=== PATIENT | female | born 1990 | race Caucasian/White ===

== ENCOUNTER 2019-12-15 14:40 | Inpatient (IN) | payer OTHER ==
[~2019-12-15] VITALS: Ht 167.6 cm; Wt 81.6 kg
[2019-12-15 14:52] VITALS: BP 137/88
[2019-12-15 15:09] LABS: URINE BLOOD TRACE (Negative); URINE COLOR YELLOW; URINE GLUCOSE-RANDOM* NEGATIVE (Negative); URINE KETONES TRACE (Negative); URINE NITRITE-REFLEX NEGATIVE (Negative); URINE PROTEIN (DIPSTICK) 1+ (Negative); URINE SPECIFIC GRAVITY >= 1.030 (1.005-1.035)
[2019-12-15 15:11] LABS: URINE BILIRUBIN NEGATIVE (Negative); URINE LEUKOCYTES-REFLEX 1+ (Negative)
[2019-12-15 15:12] LABS: ICTOTEST (BILI CONFIRMATORY) Negative (Negative); URINE CLARITY SL HAZY
[2019-12-15 15:15] LABS: SQUAMOUS 4-10 Moderate /LPF (0-3)
[2019-12-15 15:16] LABS: BACTERIA-REFLEX >30 Many /HPF (None Seen); CASTS None Seen /LPF (None Seen); CRYSTALS None Seen /LPF (None Seen); MUCUS >6 Heavy strn/LPF (None Seen); URINE RBC 0-2 Rare /HPF (0-2); URINE WBC-REFLEX 6-15 Few /HPF (0-5)
[2019-12-15 16:07] LABS: ABSOLUTE NEUTROPHILS 16.7 thou/uL (1.4-8.2); BASOPHILS 0.1 % (0.0-2.0); EOSINOPHILS 0.1 % (0.0-3.0); HEMATOCRIT 53.7 % (37.0-47.0); HEMOGLOBIN 18.6 gm/dL (12.0-15.0); LYMPHOCYTES 4.2 % (24.0-44.0); MCH 35.4 pg (26.0-34.0); MCHC 34.6 g/dL (28.0-37.0); MCV 102.4 fL (80.0-100.0); MONOCYTES 4.4 % (1.0-8.0); PLATELET COUNT 226 thou/uL (150-400); POLYS 91.2 % (36.0-66.0); RBC 5.25 mil/uL (4.20-5.00); WBC 18.3 thou/uL (4.0-11.0)
[2019-12-15 16:19] LABS: CALCIUM 9.8 mg/dL (8.5-10.1); CREATININE 0.8 mg/dL (0.6-1.0); POTASSIUM 3.9 mmol/L (3.5-5.1)
[2019-12-15 16:28] LABS: ALBUMIN 4.6 g/dL (3.4-5.0); TOTAL BILIRUBIN 2.5 mg/dL (0.2-1.0); TOTAL PROTEIN 6.7 g/dL (6.4-8.2)
[2019-12-15 17:32] LABS: CHOLESTEROL 141 mg/dL (<200); HDL CHOLESTEROL 36 mg/dL (>40); LDL CHOLESTEROL 85 mg/dL (<100); TC:HDL 3.9 Ratio (Not establshd); TRIGLYCERIDE 103 mg/dL (<150); VLDL 21 mg/dL (<40)
[2019-12-15 17:56] LABS: FOLIC ACID 1.6 ng/mL (8.6-58.9)
[2019-12-15 18:13] VITALS: BP 134/84
[2019-12-15 18:43] VITALS: BP 133/79
[2019-12-15 19:35] VITALS: BP 124/75
--- NOTE | 2019-12-15 21:08 | NUR ---
PATIENT ADMITTED FROM ER, ARRIVED ON THE UNIT AT 1930, REPORT RECEIVED FROM MARGOT/VARGAS. PATIENT ADMITTED WITH ACUTE PANCREATITIS, ELEVATED BILIRUBIN, LEUKOCYTOSIS. PATIENT C/O NAUSE AND PAIN DURING ADMISSION. ZOFRAN 4MG IV GIVEN. REPORTED TO EMBER/VARGSA OF PAIN LEVEL, ATTEMPTED TO GIVE TORADOL, BUT NEED TO WASTED DOSE, UNABLE TO GIVE DUE TO TEST TOMORROW, SHE WILL CALL SALES TRAINEE FOR PAIN MED ORDERS. PATIENT UP AD PRATIBHA. PATIENT HAS RIGHT AC IV STARTED IV FLUIDS AT 100CC/HR. ADMISSION COMPLETED, WILL REPORT TO EMBER/VARGAS.
--- NOTE | 2019-12-16 01:42 | NUR ---
ADMITTED FROM ER UNDER 'S CARE. AXOX4. INDEPENDENT WITH ADLs. CALLS APPROPRIATELY FOR ASSISTANCE. ADMITTED WITH PANCREATITIS AND ALCOHOL ABUSE. MEDICATION GIVEN PER MD ORDER. VSS. NO S/S ACUTE DISTRESS NOTED OR REPORTED AT THIS TIME. WILL CONT TO MONITOR FOR ANY CHANGES IN CONDITION.
[2019-12-16 04:53] VITALS: BP 134/81
[2019-12-16 05:52] LABS: ABSOLUTE NEUTROPHILS 16.7 thou/uL (1.4-8.2); BASOPHILS 1.1 % (0.0-2.0); HEMATOCRIT 50.8 % (37.0-47.0); HEMOGLOBIN 17.5 gm/dL (12.0-15.0); LYMPHOCYTES 1.9 % (24.0-44.0); MCH 35.1 pg (26.0-34.0); MCHC 34.4 g/dL (28.0-37.0); MCV 101.9 fL (80.0-100.0); PLATELET COUNT 226 thou/uL (150-400); RBC 4.98 mil/uL (4.20-5.00); WBC 18.3 thou/uL (4.0-11.0)
[2019-12-16 06:18] LABS: ALBUMIN 3.9 g/dL (3.4-5.0); CREATININE 0.7 mg/dL (0.6-1.0); MAGNESIUM 1.5 mg/dL (1.8-2.4); POTASSIUM 4.1 mmol/L (3.5-5.1); TOTAL BILIRUBIN 2.3 mg/dL (0.2-1.0)
[2019-12-16 08:00] VITALS: BP 146/81
--- NOTE | 2019-12-16 12:02 | NUR ---
Received awake on bed. Due medications given as prescribed. On room air. Vital signs stable. On clear liquid diet- pt refused; with nausea and vomiting- PRN anti emetics given as prescribed, offered ice chips but refused as well. A+Ox4, independent with ADLs. Continent of bowel and bladder, able to go to the toilet. With NS at 100cc/hr, infusing well at R AC. CIWA monitoring every 4 hours done; no agitations and restlessness noted. Pt seen and examined by Dr Ulloa this AM, to change diet to nothing per orem- pt informed and aware; additional anti emetics ordered- given as prescribed. Complained of pain, due PRN pain meds given as prescribed. With GI consult- US called in consult, pt seen and examined by NATALIE Smith. To continue monitoring patient.
--- NOTE | 2019-12-16 14:23 | NUR ---
PT ADMITTED RELATED TO ACUTE PANCREATITIS, ELEVATED BILIRUBIN, LEUKOCYTOSIS. CM REVIEWED CHART AND SPOKE WITH CARE TEAM. CM MET WITH PT AT BEDSIDE THIS DAY. PT IS A&O X4. CM ROLE INTRODUCED. PT INDICATED SHE LIVES IN A HOUSE WITH HER BOYFRIEND WITH NO STEPS. 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 PT INDICATED NO HH OR OP THERAPY. CM WAS NOTIFIED THAT PT'S INSURANCE IS OUT OF NETWORK AT OUR FACILITY AND PT NEEDED TRANSFER TO [facility], , OR [facility]. TRIED PER PT'S PREFERENCE THEY ARE AT CAPACITY. CALLED [facility] AND TRANSFER WAS INITIATED TO EITHER [facility] OR [facility]. [facility], ACCEPTING PHYSICIAN IS DR. MAHNAZ SILVA. PT TO GO TO ER TO BE COVID TESTED PRIOR TO ADMIT. AWAITING RESPONSE IS PT NEEDS AMBULANCE TRANSPORT OR CAN GO VIA PERSONAL VEHICLE.
[2019-12-16 15:22] VITALS: BP 137/90
== END 2019-12-16 17:49 | disposition short-term general hospital (02) | DRG 871 ==
LOC: ER 14:40 → 4W 17:18 → EROBS 17:18 → 4W 19:55
PROVIDERS: Nurse Practitioner; Physician Assistant; ADMIT Hospitalist; ATTEND Hospitalist
DX: A41.9 Sepsis, unspecified organism (principal); K85.20 Alcohol induced acute pancreatitis without necrosis or infection; N39.0 Urinary tract infection, site not specified; F17.210 Nicotine dependence, cigarettes, uncomplicated; F10.10 Alcohol abuse, uncomplicated; E80.6 Other disorders of bilirubin metabolism; K70.10 Alcoholic hepatitis without ascites; Z79.899 Other long term (current) drug therapy
CPT/HCPCS: 10040